=== PATIENT | female | born 1975 | race Caucasian/White ===

== ENCOUNTER 2023-08-10 09:22 | Outpatient (CLI) | payer BC | END 2023-08-10 09:23 | disposition home or self-care (01) | LOC: BICMRI 09:22 | PROVIDERS: ATTEND Orthopaedic Surgery | DX: M77.12 Lateral epicondylitis, left elbow (principal); S56.512A Strain of other extensor muscle, fascia and tendon at forearm level, left arm, initial encounter ==

== ENCOUNTER 2023-09-20 08:56 | Outpatient (CLI) | payer BC ==
[2023-09-20 10:14] LABS: #Eosinphils 0.2 10x3/uL (0.0-0.5); #Monocytes 0.5 10x3/uL (0.0-1.1); #Neutrophils 6.2 10x3/uL (1.5-8.4); %Basophils 0.3 % (0.0-2.0); %Eosinophils 2.1 % (0.0-6.0); %Lymphocytes 20.7 % (18.0-47.0); %Monocytes 6.2 % (0.0-10.0); %Neutrophils 70.4 % (40.0-75.0); Hematocrit 40.6 % (34.9-44.5); Hemoglobin 13.7 g/dL (12.0-15.5); Mean Corpuscular HGB CONC 33.7 g/dL (32.0-36.0); Mean Corpuscular Hemoglobin 28.9 pg (27.0-33.0); Mean Corpuscular Volume 85.7 fl (81.6-98.3); Platelet Count 410 10x3/uL (150-450); RBC Distribution Width 13.2 % (11.5-14.5); Red Blood Cell (RBC) Count 4.74 10x6/uL (3.90-5.03); White Blood Cell (WBC) Count 8.7 10x3/uL (3.5-10.5)
[2023-09-20 12:00] LABS: Anion Gap 17 mmol/L (10-20); BUN (Urea Nitrogen) 9 mg/dL (7.0-18.7); Calc. Creatinine Clearance 0 mL/min (70-130); Calcium 9.3 mg/dL (7.8-10.44); Carbon Dioxide 22 mmol/L (22-29); Chloride 104 mmol/L (98-107); Estimated GFR 110; Glucose 97 mg/dL (70-105); Potassium 3.9 mmol/L (3.5-5.1); Sodium 139 mmol/L (136-145)
[2023-09-20 12:49] LABS: BHCG - Serum Negative (NEGATIVE); Pregs Control Background? CLEAR/WHITE (CLR/WHITE); Pregs Control Bar Appear? YES (CONTROL BAR)
== END 2023-09-20 08:57 | disposition home or self-care (01) ==
LOC: LABBT 08:56
PROVIDERS: ATTEND Orthopaedic Surgery
DX: Z01.812 Encounter for preprocedural laboratory examination (principal); M77.12 Lateral epicondylitis, left elbow
CPT/HCPCS: 80048; 84703; 85025

== ENCOUNTER 2023-09-22 05:52 | Day surgery (SDC) | payer BC ==
[2023-09-20 09:24] VITALS: BMI 30.7
[2023-09-22] MEDS ORDERED: EPINEPHrine 1 MG/ML VIAL ONE (06:27)
[2023-09-22] MEDS ORDERED: Lidocaine 1% (PF) 30 ML VIAL ONE (06:28)
[2023-09-22] MEDS ORDERED: Ondansetron PF 4 MG/2 ML Vial ONE ×2 (07:02→07:37)
[2023-09-22] MEDS ORDERED: Dexamethasone 20 MG/5 ML VIAL ONE ×2 (07:02→07:37)
[2023-09-22] MEDS ORDERED: fentaNYL PF 100 MCG/2 ML SYRINGE ONE (07:02)
[2023-09-22] MEDS ORDERED: Lidocaine 2% PF 5 ML VIAL ONE (07:02)
[2023-09-22] MEDS ORDERED: PROPOFOL 20 ML ONE (07:02)
[2023-09-22] MEDS ORDERED: CEFAZOLIN 2 GM VIAL ONE (07:17)
[2023-09-22] MEDS ORDERED: Sodium Chloride 0.9% 100 ML ONE (07:17)
[2023-09-22] MEDS ORDERED: Midazolam HCl 2 mg/2 ml Vial ONE (07:25)
[2023-09-22] MEDS ORDERED: HYDROmorphone 0.5 MG/0.5 ML SYRINGE ONE (07:27)
[2023-09-22] MEDS ORDERED: Lidocaine 1% PF 5 ML VIAL ONE (07:37)
[2023-09-22] MEDS ORDERED: Ketorolac Tromethamine 30 MG/ML VIAL ONE ×2 (07:37→08:02)
[2023-09-22] MEDS ORDERED: PROPOFOL 200 MG/20 ML VIAL ONE (07:37)
[2023-09-22] MEDS ORDERED: Meperidine HCl/PF 25 MG/ML VIAL ONE (08:53)
== END 2023-09-22 11:11 | disposition home or self-care (01) ==
LOC: SDC 05:52
PROVIDERS: ATTEND Orthopaedic Surgery
PROC: 0RNM0ZZ Release Left Elbow Joint, Open Approach (ICD-10-PCS; principal; 2023-09-22)
DX: M77.12 Lateral epicondylitis, left elbow (principal); Z91.040 Latex allergy status; Z88.2 Allergy status to sulfonamides; Z79.899 Other long term (current) drug therapy
CPT/HCPCS: J0171; J1100; J1170; J1885; J2001; J2175; J2250; J2405; J2704; J3490